=== PATIENT | male | born 1970 | race Caucasian/White ===

== ENCOUNTER 2017-12-25 19:23 | Inpatient (IN) | payer MEDICAID ==
[~2017-12-25] VITALS: Ht 188 cm; Wt 90.7 kg
[2017-12-25 19:23] VITALS: BP 124/79
[2017-12-25] MEDS ORDERED: ALBUTEROL SULF8.5 GM INH (19:30)
[2017-12-25] MEDS ORDERED: ADVAIR HFA 115-12 GM INH (19:30)
[2017-12-25] MEDS ORDERED: Solu-MEDROL 125mg Inj IVP ONE (19:45)
[2017-12-25 20:04] LABS: BASOPHILS % (AUTO) 0.9 % (0.0-2.0); EOSINOPHILS % (AUTO) 1.4 % (0.0-3.0); HEMATOCRIT 35.9 % (42.0-52.0); HEMOGLOBIN 12.3 G/DL (14.2-18.0); LYMPHOCYTES % (AUTO) 28.2 % (20.0-45.0); MEAN CORPUSCULAR VOLUME 89 FL (80-99); MONOCYTES % (AUTO) 7.6 % (1.0-10.0); NEUTROPHILS % (AUTO) 61.9 % (45.0-75.0); PLATELET COUNT 279 K/UL (150-450); RED BLOOD COUNT 4.01 M/UL (4.70-6.10); RED CELL DISTRIBUTION WIDTH 14.5 % (11.6-14.8); WHITE BLOOD COUNT 7.8 K/UL (4.8-10.8)
[2017-12-25 20:13] LABS: ANION GAP 9 mmol/L (5-15); BLOOD UREA NITROGEN 10 mg/dL (7-18); CARBON DIOXIDE 28 MMOL/L (21-32); CHLORIDE 104 MMOL/L (98-107); CREATININE 0.9 MG/DL (0.55-1.30); POTASSIUM 3.3 MMOL/L (3.5-5.1); SODIUM 141 MMOL/L (136-145)
[2017-12-25 20:18] LABS: ALANINE AMINOTRANSFERASE 39 U/L (12-78); ALBUMIN 3.3 G/DL (3.4-5.0); ALBUMIN/GLOBULIN RATIO 0.9 (1.0-2.7); ALKALINE PHOSPHATASE 69 U/L (46-116); ASPARTATE AMINO TRANSFERASE 23 U/L (15-37); BILIRUBIN,TOTAL 0.2 MG/DL (0.2-1.0)
[2017-12-25] MEDS ORDERED: Albuterol/Ipratropium 3ml neb HHN ONE ×2 (20:30→20:45)
[2017-12-25 21:24] VITALS: BP 116/77
--- NOTE | 2017-12-25 21:46 | Emergency Room Report ---
History of Present Illness General Chief Complaint: Asthma Source: Patient, EMS Present Illness HPI Patient's 47-year-old male who presented after increased cough and difficulty breathing. Patient prior history of asthma. Patient states he is normally taking steroid inhaler as well as albuterol. He reports having multiple hospitalizations and states he's been intubated twice. Patient was having nonproductive cough. He reports having some subjective fever as well as nasal congestion. Allergies: Coded Allergies: No Known Allergies (Unverified , 12/25/17) Patient History Past Medical History: see triage record Reviewed Nursing Documentation: PMH: Agreed, PSxH: Agreed Nursing Documentation-PM Past Medical History: No History, Except For Hx Asthma: Yes Review of Systems All Other Systems: negative except mentioned in HPI Physical Exam Vital Signs Date Time Temp Pulse Resp B/P (MAP) Pulse Ox O2 Delivery O2 Flow Rate FiO2 12/25/17 19:17 97.5 100 18 124/79 100 Room Air 97.5 Sp02 EP Interpretation: reviewed, normal General Appearance: normal inspection, well appearing, no apparent distress, alert Head: atraumatic ENT: normal ENT inspection, hearing grossly normal, normal voice Neck: normal inspection, full range of motion, supple, no bony tend Respiratory: normal inspection, no respiratory distress, no retraction, wheezing Cardiovascular #1: regular rate, rhythm, no edema Gastrointestinal: normal inspection, normal bowel sounds, non tender, soft, no guarding, no hernia Genitourinary: no CVA tenderness Musculoskeletal: normal inspection, back normal, normal range of motion Neurologic: normal inspection, alert, responsive, speech normal Psychiatric: normal inspection, judgement/insight normal, mood/affect normal Skin: normal inspection, normal color, no rash Medical Decision Making Diagnostic Impression: Primary Impression: Asthma with acute exacerbation ER Course Patient presented for shortness of breath. Differential included but was not limited to anemia, pneumonia, asthma, pneumothorax, myocardial infarction, pericardial effusion, congestive heart failure, acidosis. Because of complexity of patient's case laboratory testing and imaging studies were ordered. Because of complexity of patient's case laboratory testing and imaging studies were ordered.Patient was given IV fluids as well as IV steroids. He is given breathing treatments with minimal improvement. The patient noted to have continued wheezing as well as difficulty with air movement. Dr. Yung Kemp was contacted for inpatient management due to panel physician. Labs Test 12/25/17 19:53 White Blood Count 7.8 K/UL (4.8-10.8) Red Blood Count 4.01 M/UL (4.70-6.10) Hemoglobin 12.3 G/DL (14.2-18.0) Hematocrit 35.9 % (42.0-52.0) Mean Corpuscular Volume 89 FL (80-99) Mean Corpuscular Hemoglobin 30.7 PG (27.0-31.0) Mean Corpuscular Hemoglobin Concent 34.3 G/DL (32.0-36.0) Red Cell Distribution Width 14.5 % (11.6-14.8) Platelet Count 279 K/UL (150-450) Mean Platelet Volume 6.4 FL (6.5-10.1) Neutrophils (%) (Auto) 61.9 % (45.0-75.0) Lymphocytes (%) (Auto) 28.2 % (20.0-45.0) Monocytes (%) (Auto) 7.6 % (1.0-10.0) Eosinophils (%) (Auto) 1.4 % (0.0-3.0) Basophils (%) (Auto) 0.9 % (0.0-2.0) Sodium Level 141 MMOL/L (136-145) Potassium Level 3.3 MMOL/L (3.5-5.1) Chloride Level 104 MMOL/L (98-107) Carbon Dioxide Level 28 MMOL/L (21-32) Anion Gap 9 mmol/L (5-15) Blood Urea Nitrogen 10 mg/dL (7-18) Creatinine 0.9 MG/DL (0.55-1.30) Estimat Glomerular Filtration Rate > 60 mL/min (>60) Glucose Level 148 MG/DL (74-106) Calcium Level 9.0 MG/DL (8.5-10.1) Total Bilirubin 0.2 MG/DL (0.2-1.0) Aspartate Amino Transf (AST/SGOT) 23 U/L (15-37) Alanine Aminotransferase (ALT/SGPT) 39 U/L (12-78) Alkaline Phosphatase 69 U/L (46-116) Troponin I 0.005 ng/mL (0.000-0.056) Total Protein 6.9 G/DL (6.4-8.2) Albumin 3.3 G/DL (3.4-5.0) Globulin 3.6 g/dL Albumin/Globulin Ratio 0.9 (1.0-2.7) Last Vital Signs Date Time Temp Pulse Resp B/P (MAP) Pulse Ox O2 Delivery O2 Flow Rate FiO2 12/25/17 21:24 99.3 116 24 116/77 98 Room Air 99.3 Status: improved Disposition: HOME, SELF-CARE Condition: Stable Referrals: NON PHYSICIAN (PCP) Sudhir Olivares Dec 25, 2017 21:46
[2017-12-25 22:56] VITALS: BP 120/63
[2017-12-25] MEDS ORDERED: Milk of Magnesia 30ml Ud ORAL PRN (23:15)
[2017-12-25] MEDS ORDERED: Zolpidem 5mg tab ORAL PRN (23:15)
[2017-12-25 23:31] VITALS: BP 121/68
[2017-12-26] VITALS (7 sets, daily range): BP systolic 109–139; BP diastolic 74–94
[2017-12-26] MEDS ORDERED: PREVACID 24HR15 M1 ORAL (00:44)
[2017-12-26] MEDS ORDERED: cefTRIAXone 1 GM in D5W 55 ML IVPB SCH (03:00)
[2017-12-26] MEDS: Albuterol/Ipratropium 3ml neb HHN SCH ×6 (03:46→23:00)
[2017-12-26 08:11] LABS: HEMATOCRIT 34.5 % (42.0-52.0); HEMOGLOBIN 11.9 G/DL (14.2-18.0); MEAN CORPUSCULAR VOLUME 90 FL (80-99); PLATELET COUNT 281 K/UL (150-450); RED BLOOD COUNT 3.84 M/UL (4.70-6.10); RED CELL DISTRIBUTION WIDTH 14.6 % (11.6-14.8); WHITE BLOOD COUNT 6.5 K/UL (4.8-10.8)
[2017-12-26] MEDS: Azithromycin 250mg tab ORAL SCH (08:16)
[2017-12-26] MEDS: Pantoprazole Inj IVP SCH (08:18)
[2017-12-26] MEDS: Heparin 5000 units/ml inj SUBQ SCH ×2 (08:18→22:11)
[2017-12-26] MEDS: Solu-MEDROL 125mg Inj IVP SCH ×2 (08:19→22:09)
--- NOTE | 2017-12-26 08:21 | History & Physical ---
History and Physical History & Physicial 47 year old male presents with Asthma exacerbation and shortness of breath. patient was given breathing treatments without improvement and required admission. Patient with scant sputum production and cough. PMH Asthma MEDS and ALLERGIES noted SOCIAL HX reviewed PHYSICAL WDWN NAD reduced breath sounds bilaterally with some wheeze [id number] without MRG NABS nontender no HSM no CCE nonfocal Laboratory Tests Test 12/25/17 19:53 12/26/17 06:35 White Blood Count 7.8 K/UL (4.8-10.8) 6.5 K/UL (4.8-10.8) Red Blood Count 4.01 M/UL (4.70-6.10) L 3.84 M/UL (4.70-6.10) L Hemoglobin 12.3 G/DL (14.2-18.0) L 11.9 G/DL (14.2-18.0) L Hematocrit 35.9 % (42.0-52.0) L 34.5 % (42.0-52.0) L Mean Corpuscular Volume 89 FL (80-99) 90 FL (80-99) Mean Corpuscular Hemoglobin 30.7 PG (27.0-31.0) 31.0 PG (27.0-31.0) Mean Corpuscular Hemoglobin Concent 34.3 G/DL (32.0-36.0) 34.5 G/DL (32.0-36.0) Red Cell Distribution Width 14.5 % (11.6-14.8) 14.6 % (11.6-14.8) Platelet Count 279 K/UL (150-450) 281 K/UL (150-450) Mean Platelet Volume 6.4 FL (6.5-10.1) L 6.6 FL (6.5-10.1) Neutrophils (%) (Auto) 61.9 % (45.0-75.0) % (45.0-75.0) Lymphocytes (%) (Auto) 28.2 % (20.0-45.0) % (20.0-45.0) Monocytes (%) (Auto) 7.6 % (1.0-10.0) % (1.0-10.0) Eosinophils (%) (Auto) 1.4 % (0.0-3.0) % (0.0-3.0) Basophils (%) (Auto) 0.9 % (0.0-2.0) % (0.0-2.0) Sodium Level 141 MMOL/L (136-145) Pending Potassium Level 3.3 MMOL/L (3.5-5.1) L Pending Chloride Level 104 MMOL/L (98-107) Pending Carbon Dioxide Level 28 MMOL/L (21-32) Pending Anion Gap 9 mmol/L (5-15) Blood Urea Nitrogen 10 mg/dL (7-18) Pending Creatinine 0.9 MG/DL (0.55-1.30) Pending Estimat Glomerular Filtration Rate > 60 mL/min (>60) Pending Glucose Level 148 MG/DL (74-106) H Pending Calcium Level 9.0 MG/DL (8.5-10.1) Pending Total Bilirubin 0.2 MG/DL (0.2-1.0) Aspartate Amino Transf (AST/SGOT) 23 U/L (15-37) Alanine Aminotransferase (ALT/SGPT) 39 U/L (12-78) Alkaline Phosphatase 69 U/L (46-116) Troponin I 0.005 ng/mL (0.000-0.056) Total Protein 6.9 G/DL (6.4-8.2) Albumin 3.3 G/DL (3.4-5.0) L Globulin 3.6 g/dL Albumin/Globulin Ratio 0.9 (1.0-2.7) L Neutrophils % (Manual) Pending Lymphocytes % (Manual) Pending Platelet Estimate Pending Platelet Morphology Pending IMPRESSION Asthma exacerbation respiratory distress PLAN care noted IV antibiotics respiratory care IV steroids and taper oxygen therapy prognosis guarded TWYLA VAN Dec 26, 2017 08:21
[2017-12-26 08:28] LABS: ANION GAP 12 mmol/L (5-15); BLOOD UREA NITROGEN 9 mg/dL (7-18); CALCIUM 9.4 MG/DL (8.5-10.1); CARBON DIOXIDE 25 MMOL/L (21-32); CHLORIDE 103 MMOL/L (98-107); POTASSIUM 4.2 MMOL/L (3.5-5.1); SODIUM 140 MMOL/L (136-145)
--- NOTE | 2017-12-26 08:47 | Diagnostic Imaging Report ---
Indication: Reason For Exam: SOB Technique: XRAY Chest 1v Comparison:None Findings: Poor inspiration. The heart is at the upper limits of normal size to slightly enlarged. Prominent interstitial markings are present. No pleural fluid. Impression: Poor inspiration. Prominent interstitial markings. This may be due to the poor inspiratory effort. Interstitial disease is not excluded. Otherwise grossly negative.
[2017-12-26] MEDS ORDERED: NS 275ml ONE (16:09)
[2017-12-26] MEDS ORDERED: Tubing IV Secondary IV ONE (16:09)
[2017-12-27] VITALS: BP 114/69
[2017-12-27] MEDS: Albuterol/Ipratropium 3ml neb HHN SCH ×2 (03:00→06:56)
[2017-12-27] MEDS ORDERED: cefTRIAXone 1 GM in NS 55 ML IVPB SCH (03:00)
[2017-12-27 04:00] VITALS: BP 125/76
--- NOTE | 2017-12-27 07:25 | General Progress Note ---
Assessment/Plan Assessment/Plan asthma bronchospasm PLAN dc home advair medrol sekou proair roddy outpatient follow up with PMD Subjective Allergies: Coded Allergies: No Known Allergies (Unverified , 12/25/17) Subjective care noted improved overall Objective Last 24 Hour Vital Signs Date Time Temp Pulse Resp B/P (MAP) Pulse Ox O2 Delivery O2 Flow Rate FiO2 12/27/17 06:50 67 18 96 Room Air 21 12/27/17 04:00 97.7 80 20 125/76 97 Room Air 97.7 12/27/17 04:00 77 12/27/17 03:28 Room Air 21 12/27/17 03:27 Room Air 21 12/27/17 00:00 98.1 108 20 114/69 96 Room Air 98.1 12/27/17 00:00 83 12/26/17 23:18 Room Air 21 12/26/17 23:17 Room Air 21 12/26/17 20:00 98.7 85 20 109/74 97 Room Air 98.7 12/26/17 20:00 77 12/26/17 19:43 94 20 99 Room Air 21 12/26/17 19:43 92 20 98 Room Air 21 12/26/17 16:00 97.9 105 20 109/75 98 Room Air 97.9 12/26/17 16:00 100 12/26/17 15:45 96 20 98 Room Air 12/26/17 15:39 96 18 97 Room Air 12/26/17 12:00 103 12/26/17 12:00 97.9 92 21 127/77 99 Room Air 97.9 12/26/17 10:48 88 20 98 Room Air 12/26/17 10:37 88 18 97 Room Air 12/26/17 08:00 89 12/26/17 08:00 97.5 85 20 114/81 97 Room Air 97.5 Intake and Output 12/26/17 12/27/17 19:00 07:00 Intake Total 830 ml Balance 830 ml Intake Oral 830 ml # Voids 3 Height (Feet): 6 Height (Inches): 2.00 Weight (Pounds): 200 Objective WDWN NAD clear breath sounds bilaterally with minimal rhonchi [id number] without MRG NABS nontender no HSM no CCE nonfocal TWYLA VAN Dec 27, 2017 07:25
[2017-12-27 08:00] VITALS: BP 143/84
[2017-12-27] MEDS: Solu-MEDROL 125mg Inj IVP SCH (09:00)
[2017-12-27] MEDS: Pantoprazole Inj IVP SCH (09:00)
[2017-12-27] MEDS: Heparin 5000 units/ml inj SUBQ SCH (09:00)
[2017-12-27] MEDS: Azithromycin 250mg tab ORAL SCH (09:00)
--- NOTE | 2017-12-27 16:27 | Cardiology Report ---
APPROVED REPORT EKG Measurement Heart [id number] Sinus tachycardia Cannot rule out Anterior infarct, age undetermined Abnormal ECG
--- NOTE | 2017-12-29 09:21 | Discharge Summary ---
Discharge Summary Hospital Course Date of Admission Dec 25, 2017 at 21:01 Date of Discharge Dec 27, 2017 at 10:15 Admitting Diagnosis asthma exacerbation HPI Jad Morel is a 47 year old male who was admitted on Dec 25, 2017 at 21: 01 for Ashtma Exacerbation Hospital Course dc summary #[id number] Discharge Condition Upon Discharge: stable - #[id number] Discharge Disposition Patient was discharged home, but left before discharge papers were done Discharge Diagnoses: Discharge Instructions Discharge Instructions Special Instructions I have been assigned to complete a D/C Summary on this account. I was not involved in the patient management Dilma Ybarra NP ([place]te[place]) Dec 29, 2017 09:21
--- NOTE | 2017-12-30 04:15 | Discharge Summary 2 SIG ---
DATE OF ADMISSION: 12/25/2017 DATE OF DISCHARGE: 12/27/2017 REASON FOR ADMISSION: 47-year-old male with history of asthma, presented to emergency department with cough and difficulty breathing. The patient was using at home steroid inhaler and albuterol. The patient reported multiple hospitalizations and history of intubation x2. The patient reported nonproductive cough. He denied chest pain, but reported subjective fever and nasal congestion. Influenza screen was negative. Chest x-ray revealed no acute cardiopulmonary pathology. The patient was afebrile. Pulse oximetry was stable on room air. The patient was admitted with acute asthma exacerbation. HOSPITAL COURSE: The patient was admitted. Supplemental oxygen provided as needed and titrated to keep pulse oximetry above 92%. Pulse oximetry was stable on room air prior to discharge. Pulmonary toilet via handheld nebulizing with bronchodilators provided around the clock and as needed. The patient was on empiric antibiotics. The patient was started on IV steroids. Unable to collect sputum culture since cough was dry. Gastrointestinal prophylaxis provided. Supportive care provided. The patient was clinically improving. The patient was stable for discharge home. However, the patient left before discharge instructions and discharge medications list were provided to him. FINAL DIAGNOSES: 1. Acute asthma exacerbation. 2. Respiratory distress, resolved. Yung Kemp M.D. I have been assigned to dictate discharge summary on this account and I was not involved in the patient's management. Dilma Vomelvin N.PMimi DR: Vito JOB#: [id number] CC: JARET
== END 2017-12-27 10:15 | disposition left against medical advice (07) | DRG 141 ==
LOC: EDBD 19:23 → EMR 20:03 → 2E 21:01 → EDBEDREQ 22:19 → 2E 23:39 → EDBEDREQ 23:39
DX: J45.901 Unspecified asthma with (acute) exacerbation (principal); R06.03 Acute respiratory distress
CPT/HCPCS: 36415; 71045; 80048; 80053; 84484; 85007; 85025; 86710; 93005; 94640; 94664; 99285; J7620